=== PATIENT | male | born 1940 | race Caucasian/White ===

== ENCOUNTER 2019-06-23 16:35 | Inpatient (IN) | payer MEDICARE ==
[~2019-06-23] VITALS: Ht 188 cm; Wt 76.6 kg
[2019-06-23] MEDS: pantoprazole 40 MG vial IV SCH (08:00)
[2019-06-23 17:04] LABS: BASOPHILS % (AUTO) 0.7 % (0-1); EOSINOPHILS # (AUTO) 0.1 X10'3 (0-0.9); EOSINOPHILS % (AUTO) 1.4 % (0-6); HEMATOCRIT 23.8 % (42.0-52.0); HEMOGLOBIN 8.2 g/dl (14.0-17.9); LYMPHOCYTES # (AUTO) 0.6 X10'3 (1.1-4.8); LYMPHOCYTES % (AUTO) 8.5 % (21-51); MEAN CORPUSCULAR HGB CONC 34.3 g/dL (33.0-36.5); MEAN PLATELET VOLUME 7.8 FL (7.4-10.4); MONOCYTES # (AUTO) 0.9 X10'3 (0-0.9); MONOCYTES % (AUTO) 14.3 % (2-12); NEUTROPHILS % (AUTO) 75.1 % (42-75); PLATELET COUNT 198 X10'3 (140-440); RED BLOOD COUNT 2.48 X10'6 (4.70-6.10); RED CELL DISTRIBUTION WIDTH 13.9 % (11.5-14.5); WHITE BLOOD COUNT 6.6 X10'3 (4.5-11.0)
[2019-06-23] MEDS: propofol 1000mg/100ml bottle 100 ML IV PRN ×2 (17:08→20:45)
[2019-06-23 17:19] LABS: ALANINE AMINOTRANSFERASE 24 U/L (12-78); ALBUMIN 2.6 G/DL (3.4-5.0); ALBUMIN/GLOBULIN RATIO 0.7 (1.1-1.5); ALKALINE PHOSPHATASE 62 IU/L (46-116); ANION GAP 8 (8-16); ASPARTATE AMINO TRANSFERASE 26 U/L (10-37); BILIRUBIN,TOTAL 0.3 MG/DL (0.1-1.0); BLOOD UREA NITROGEN 42 MG/DL (7-18); BUN/CREATININE RATIO 27.6 (5.4-32.0); CALCIUM 7.9 MG/DL (8.5-10.1); CHLORIDE 108 MMOL/L (99-107); CREATININE 1.52 MG/DL (0.60-1.10); GLUCOSE 94 MG/DL (70-104); SODIUM 141 MMOL/L (135-145); TOTAL CARBON DIOXIDE 24.6 MMOL/L (24-32); TOTAL PROTEIN 6.1 G/DL (6.4-8.2); eGFR 44 ML/MIN
[2019-06-23 17:25] LABS: MAGNESIUM 2.1 MG/DL (1.5-2.4)
[2019-06-23 17:26] LABS: ABG BASE EXCESS -3.1 mmol/L (-2.0-3.0); ABG HCO3 22.1 mmol/L (22.0-26.0); ABG OXYGEN SATURATION 95.7 % (95-98); ABG PCO2 (T) 40.3 mmHg (35.0-45.0); ABG PH (T) 7.357 (7.350-7.450); ALLEN'S TEST Positive; FCOHb 0.3 % (0.5-1.5); FMetHb 0.3 % (0.3-1.12); FO2Hb 95.1 % (94-100); MINUTE VOLUME 9 L/min; PEEP 5 cm H2O; RESPIRATORY RATE 16 b/min; RESPIRATORY RATE (OBSERVED) 16 b/min; TIDAL VOLUME 500 mL; TOTAL HEMOGLOBIN 8.7 G/dl (14.0-17.9)
[2019-06-23] MEDS ORDERED: potassium Cl 20 mEq SR tablet PO PRN ×2 (17:45)
[2019-06-23] MEDS ORDERED: acetaminophen 325mg tablet PO PRN ×2 (17:45)
[2019-06-23] MEDS ORDERED: ondansetron/PF 4mg/2ml inj IV PRN (17:45)
[2019-06-23] MEDS ORDERED: FENTANYL-0.9 % NACL/PF 100 ML IV PRN (17:51)
[2019-06-23] MEDS ORDERED: midazolam 100mg in NS 100ml 100 ML IV PRN (17:51)
[2019-06-23] MEDS ORDERED: albuterol 2.5 MG/3 ML nebule NEB PRN (17:55)
[2019-06-23] MEDS: K, MAG and/or Phos replacement - Verify level? MC SCH (18:00)
--- NOTE | 2019-06-23 18:40 | NUR ---
Received report from Rasheeda FONG. Dr. Cerda in progress with R-IJ quad central line. Pt currently being infused with IV Propofol for sedation. VS WNL. Pt has 7.5 ETT, 24cm @ teeth, OG - 58 cm @ lip to LWS; all other IV lines checked/confirmed/remain intact. +Carrington. Pt remians critically stable at this time. Pending ICU admission.
--- NOTE | 2019-06-23 18:46 | NUR ---
CXR in progress.
--- NOTE | 2019-06-23 18:47 | NUR ---
Updated patients , Gillian, regarding patients current status.
--- NOTE | 2019-06-23 19:13 | NUR ---
"Ok to use central line" per Dr. Cerda after review of CXR post-central line insertion.
--- NOTE | 2019-06-23 19:23 | NUR ---
Attempted to call report to ICU, bedside RN will call back this customs entry writer w/in 15mins for report.
--- NOTE | 2019-06-23 19:36 | NUR ---
I have received report from Ana FONG form ED and had the opportunity to ask questions. Room is set up and ready for PT arrival.
--- NOTE | 2019-06-23 19:45 | NUR ---
Per discussion with receiving ICU nurse Josie, telemedicine neuro consult needs to be completed prior to pt being admitted to ICU per Dr. Bell.
[2019-06-23] MEDS: docusate sod 100mg capsule PO SCH (20:00)
--- NOTE | 2019-06-23 20:09 | NUR ---
Per Dr. Calixto, "ok" to send pt up to ICU pending neuro telemedicine consult. EDCRN Kassidy aware and agrees with plan. CVP monitoring set up, zeroed, initial CVP 17 () with appropriate waveform.
[2019-06-23] MEDS: normal saline 1000ml 1,000 ML IV SCH (20:49)
[2019-06-23 21:00] VITALS: BP 141/71
--- NOTE | 2019-06-23 21:00 | NUR ---
PT arrived via gurney. PT transferred over to bed and placed on bedside monitor. VSS. PT is intubated and mechanically vented, tolerating setting well, O2 sat >94%. PT is sedated with Propofol which is running @ 40mcg/kg/min and has fentanyl/versed ordered as well which will be started, PT is having tremors and biting ET tube. Tele medicine computer was brought up with PT from ED, awaiting for stroke nurse to arrive. Shultz in place and draining to gravity. Bed is locked and low. Bilat soft wrist restraints in place and secure.
[2019-06-23 21:13] LABS: CLARITY,URINE SLIGHTLY CLOUDY (Clear); COLOR,URINE YELLOW (Yellow); GLUCOSE, URINE NEGATIVE (Neg); KETONES,URINE NEGATIVE (Neg); LEUKOCYTE ESTERASE ,URINE NEGATIVE (Neg); NITRITES, URINE NEGATIVE (Neg); OCCULT BLOOD,URINE LARGE (Neg); PH,URINE 5.5 (4.8-8.0); PROTEIN,URINE TRACE mg/dl (Neg); UROBILINOGEN,URINE 0.2 E.U/dL (0.2-1.0)
[2019-06-23 21:19] LABS: UA COLLECTION TYPE FOLEY CATH
[2019-06-23 21:20] LABS: BACTERIA,URINE FEW /HPF (Neg); RBC,URINE 20-50 /HPF (0-2); SQUAMOUS EPITHELIAL CELL,UR FEW /LPF (FEW); WBC,URINE NONE SEEN /HPF (0-4)
[2019-06-23 21:44] LABS: PARTIAL THROMBOPLASTIN TIME 29 SECONDS (22-32)
[2019-06-23 22:00] VITALS: BP 150/96
[2019-06-23 23:00] VITALS: BP 149/74
[2019-06-23] MEDS ORDERED: iohexol 350MG/ML 100ml bottle IV ONE (23:20)
[2019-06-24] VITALS (21 sets, daily range): BP systolic 107–141; BP diastolic 47–74
[2019-06-24] MEDS: piperacillin/tazo 3.375gm/50ml 50 ML IV SCH ×3 (00:40→17:40)
[2019-06-24] MEDS: heparin, porcine 5000 units/ml vial SQ SCH ×3 (00:41→17:40)
--- NOTE | 2019-06-24 02:30 | NUR ---
GIANLUCA Nova called and made aware of PTs blood sugar of 72. Dietary consult order received and will continue to monitor.
--- NOTE | 2019-06-24 03:00 | NUR ---
PT is resting with no s/s of distress noted at this time. VSS. Bed is locked and low. Bilat soft wrist restraints in place and secure. will continue to monitor.
[2019-06-24] MEDS: normal saline 1000ml 1,000 ML IV SCH ×4 (03:05→21:40)
[2019-06-24 03:11] LABS: BASOPHILS % (AUTO) 0.4 % (0-1); EOSINOPHILS # (AUTO) 0.1 X10'3 (0-0.9); EOSINOPHILS % (AUTO) 0.6 % (0-6); HEMATOCRIT 24.6 % (42.0-52.0); HEMOGLOBIN 8.4 g/dl (14.0-17.9); LYMPHOCYTES # (AUTO) 0.3 X10'3 (1.1-4.8); LYMPHOCYTES % (AUTO) 3.9 % (21-51); MEAN CORPUSCULAR HEMOGLOBIN 33.1 PG (27.0-31.0); MEAN CORPUSCULAR VOLUME 97.3 FL (78-98); MEAN PLATELET VOLUME 7.9 FL (7.4-10.4); MONOCYTES % (AUTO) 11.6 % (2-12); NEUTROPHILS # (AUTO) 7.4 X10'3 (1.8-7.7); NEUTROPHILS % (AUTO) 83.5 % (42-75); PLATELET COUNT 198 X10'3 (140-440); RED BLOOD COUNT 2.53 X10'6 (4.70-6.10); RED CELL DISTRIBUTION WIDTH 13.5 % (11.5-14.5); WHITE BLOOD COUNT 8.8 X10'3 (4.5-11.0)
[2019-06-24 03:36] LABS: ABG BASE EXCESS -4.2 mmol/L (-2.0-3.0); ABG HCO3 20.4 mmol/L (22.0-26.0); ABG OXYGEN SATURATION 94.6 % (95-98); ABG PCO2 (T) 35.7 mmHg (35.0-45.0); ABG PH (T) 7.377 (7.350-7.450); ABG PO2 (T) 79.5 mmHg (83-108); ALLEN'S TEST Positive; FCOHb 0.3 % (0.5-1.5); FMetHb 0.3 % (0.3-1.12); MINUTE VOLUME 9 L/min; PATIENT TEMPERATURE 37.3; PEEP 5 cm H2O; RESPIRATORY RATE 16 b/min; RESPIRATORY RATE (OBSERVED) 16 b/min; TIDAL VOLUME 500 mL; TOTAL HEMOGLOBIN 9.1 G/dl (14.0-17.9)
[2019-06-24 04:06] LABS: ALANINE AMINOTRANSFERASE 24 U/L (12-78); ALBUMIN 2.6 G/DL (3.4-5.0); ALBUMIN/GLOBULIN RATIO 0.7 (1.1-1.5); ALKALINE PHOSPHATASE 64 IU/L (46-116); ANION GAP 9 (8-16); ASPARTATE AMINO TRANSFERASE 31 U/L (10-37); BILIRUBIN,TOTAL 0.4 MG/DL (0.1-1.0); BLOOD UREA NITROGEN 36 MG/DL (7-18); BUN/CREATININE RATIO 26.5 (5.4-32.0); CALCIUM 7.9 MG/DL (8.5-10.1); CHLORIDE 108 MMOL/L (99-107); CREATININE 1.36 MG/DL (0.60-1.10); GLUCOSE 75 MG/DL (70-104); POTASSIUM 3.6 MMOL/L (3.5-5.1); SODIUM 140 MMOL/L (135-145); TOTAL CARBON DIOXIDE 23.2 MMOL/L (24-32); TOTAL PROTEIN 6.1 G/DL (6.4-8.2); eGFR 51 ML/MIN
[2019-06-24 04:09] LABS: PHOSPHORUS 2.6 MG/DL (2.3-4.5)
[2019-06-24] MEDS: propofol 1000mg/100ml bottle 100 ML IV PRN (05:06)
--- NOTE | 2019-06-24 06:30 | NUR ---
Patient in room ICU 2042. I have received report from JAYMIE and had the opportunity to ask questions and assume patient care.
--- NOTE | 2019-06-24 07:09 | NUR ---
Problems reprioritized. Patient report given, questions answered & plan of care reviewed with Melina FONG.
[2019-06-24] MEDS: K, MAG and/or Phos replacement - Verify level? MC SCH (08:00)
[2019-06-24] MEDS: docusate sod 100mg capsule PO SCH ×2 (08:00→21:40)
--- NOTE | 2019-06-24 08:45 | NUR ---
pt nonresponsive to commands. barely able to open eyelids to check pupils- resistive and to oral care. fentanyl, versed and diprivan off to asses pt.
[2019-06-24] MEDS: azithromycin/NS 500mg/250ml 250 ML IV SCH (09:15)
[2019-06-24] MEDS: pantoprazole 40 MG vial IV SCH (09:15)
--- NOTE | 2019-06-24 09:54 | NUR ---
TF consult: Pt with AMS which developed after a fall and admit with pericardial effusion and respiratory failure. Pt was intubated prior to transfer to [facility]. TF recommendations below calculated to meet 100% of patient's estimated nutrient needs while intubated. Per H&P pt with hx Parkinson's; pt may benefit from adaptive-jim once extubated and PO diet has been advanced. No documented LBM, pt with routine Colace and Relistor. Will continue to follow closely. Recommendations: 1) Continuous TF via OG tube using Vital AF with goal rate of 90 mL/hr to provide: 2160 mL total volume/day, 2592 kcal, 162 g protein, and 1752 mL water 2) Additional 140 mL water flush Q4H 3) Prealbumin q / 4) Daily weights 5) Diet advancement to heart healthy as medically indicated once extubated 6) Monitor need for adaptive-jim with PO diet advancement given hx Parkinson's 7) Routine bowel care Addendum: 06/24/19 at [address] Amended: Links added.
--- NOTE | 2019-06-24 11:00 | NUR ---
with care pt becomes rigid with slight tremor on right hand. and mother in law in in to visit. able to do admission assessment, meds list. updated frequently.
[2019-06-24] MEDS ORDERED: FLO0.4C PO (12:31)
[2019-06-24] MEDS ORDERED: LEVO88TA7 PO (12:31)
[2019-06-24] MEDS ORDERED: FLUD0.1T PO (12:31)
[2019-06-24] MEDS ORDERED: CITA40TA17 PO (12:31)
[2019-06-24] MEDS ORDERED: SIMV-42 PO (12:32)
--- NOTE | 2019-06-24 15:30 | NUR ---
contacted to complete mri screening form. diprivan started with bolus for mri. with care, trmors increased on rt side. pt rigid from head to feet. leg bent at knew by pt- would only relax with diprivan bolus.
--- NOTE | 2019-06-24 16:30 | NUR ---
pt back from mri- 2 5cc boluses needed for test to relax pt. update to . echo complete. eeg for tomorrow. vss, uo adequate. update to dr michel today
--- NOTE | 2019-06-24 18:30 | NUR ---
Patient in room ICU 2042. I have received report from Melina FONG and had the opportunity to ask questions and assume patient care.
[2019-06-24] MEDS: mineral oil/petrolatum ophthal oint EACHEYE SCH (21:40)
[2019-06-25] VITALS (24 sets, daily range): BP systolic 105–142; BP diastolic 16–68
[2019-06-25] MEDS: piperacillin/tazo 3.375gm/50ml 50 ML IV SCH ×4 (00:36→23:57)
[2019-06-25] MEDS: heparin, porcine 5000 units/ml vial SQ SCH ×4 (00:36→23:58)
[2019-06-25] MEDS: propofol 1000mg/100ml bottle 100 ML IV PRN (00:36)
[2019-06-25] MEDS: mineral oil/petrolatum ophthal oint EACHEYE SCH ×4 (02:57→20:38)
[2019-06-25] MEDS: normal saline 1000ml 1,000 ML IV SCH ×2 (04:00→10:38)
[2019-06-25 04:15] LABS: BASOPHILS % (AUTO) 0.5 % (0-1); EOSINOPHILS # (AUTO) 0.1 X10'3 (0-0.9); EOSINOPHILS % (AUTO) 0.6 % (0-6); HEMATOCRIT 24.5 % (42.0-52.0); HEMOGLOBIN 8.3 g/dl (14.0-17.9); LYMPHOCYTES # (AUTO) 0.5 X10'3 (1.1-4.8); LYMPHOCYTES % (AUTO) 5.4 % (21-51); MEAN CORPUSCULAR HEMOGLOBIN 32.9 PG (27.0-31.0); MEAN CORPUSCULAR HGB CONC 33.9 g/dL (33.0-36.5); MEAN CORPUSCULAR VOLUME 97.1 FL (78-98); MEAN PLATELET VOLUME 8.3 FL (7.4-10.4); MONOCYTES # (AUTO) 0.9 X10'3 (0-0.9); NEUTROPHILS % (AUTO) 82.5 % (42-75); PLATELET COUNT 191 X10'3 (140-440); RED BLOOD COUNT 2.52 X10'6 (4.70-6.10); RED CELL DISTRIBUTION WIDTH 13.7 % (11.5-14.5); WHITE BLOOD COUNT 8.5 X10'3 (4.5-11.0)
[2019-06-25 04:33] LABS: ALANINE AMINOTRANSFERASE 23 U/L (12-78); ALBUMIN 2.2 G/DL (3.4-5.0); ALBUMIN/GLOBULIN RATIO 0.6 (1.1-1.5); ALKALINE PHOSPHATASE 64 IU/L (46-116); ANION GAP 6 (8-16); ASPARTATE AMINO TRANSFERASE 25 U/L (10-37); BILIRUBIN,TOTAL 0.4 MG/DL (0.1-1.0); BLOOD UREA NITROGEN 27 MG/DL (7-18); CALCIUM 7.9 MG/DL (8.5-10.1); CHLORIDE 110 MMOL/L (99-107); CREATININE 1.35 MG/DL (0.60-1.10); GLUCOSE 108 MG/DL (70-104); PHOSPHORUS 3.1 MG/DL (2.3-4.5); POTASSIUM 3.4 MMOL/L (3.5-5.1); SODIUM 142 MMOL/L (135-145); TOTAL PROTEIN 5.7 G/DL (6.4-8.2); eGFR 51 ML/MIN
[2019-06-25 04:40] LABS: ABG BASE EXCESS -2.7 mmol/L (-2.0-3.0); ABG OXYGEN SATURATION 96.7 % (95-98); ABG PCO2 (T) 36.7 mmHg (35.0-45.0); ABG PH (T) 7.393 (7.350-7.450); ABG PO2 (T) 89.9 mmHg (83-108); ALLEN'S TEST Positive; FCOHb 0.3 % (0.5-1.5); FMetHb 0.3 % (0.3-1.12); FO2Hb 96.1 % (94-100); MINUTE VOLUME 9 L/min; PATIENT TEMPERATURE 36.7; PEEP 5 cm H2O; RESPIRATORY RATE 16 b/min; RESPIRATORY RATE (OBSERVED) 16 b/min; TIDAL VOLUME 500 mL
--- NOTE | 2019-06-25 06:42 | NUR ---
Problems reprioritized. Patient report given, questions answered & plan of care reviewed with Art RN.
[2019-06-25] MEDS ORDERED: levoTHYROXINE 88mcg tablet PO SCH (07:30)
[2019-06-25] MEDS ORDERED: POTASSIUM BICARB 20meq eff tab 20 MEQ TABLET.EFF PO PRN (07:50)
[2019-06-25] MEDS ORDERED: fludrocortisone acetate 0.1mg tablet PO SCH (08:00)
[2019-06-25] MEDS ORDERED: citalopram 20mg tablet PO SCH (08:00)
[2019-06-25] MEDS: pantoprazole 40 MG vial IV SCH (08:38)
[2019-06-25] MEDS: POTASSIUM BICARB 20meq eff tab 20 MEQ TABLET.EFF PO PRN ×2 (08:38→12:07)
[2019-06-25] MEDS: docusate sod 100mg capsule PO SCH (08:38)
[2019-06-25] MEDS: azithromycin/NS 500mg/250ml 250 ML IV SCH (08:38)
[2019-06-25] MEDS: tamsulosin 0.4mg capsule PO SCH (08:39)
[2019-06-25] MEDS: K, MAG and/or Phos replacement - Verify level? MC SCH (08:40)
--- NOTE | 2019-06-25 10:51 | NUR ---
Sedation turned off for respiratory testing
--- NOTE | 2019-06-25 12:17 | NUR ---
pt exhibiting tremors to right hand, sedation turned back on.
--- NOTE | 2019-06-25 12:29 | NUR ---
Marquis trigger: Marquis Jim; skin intact Addendum: 06/25/19 at [address] Amended: Links added.
[2019-06-25] MEDS ORDERED: lactulose 20gm/30ml cup PO PRN (17:45)
--- NOTE | 2019-06-25 18:30 | NUR ---
Patient in room ICU 2042. I have received report from Art RN and had the opportunity to ask questions and assume patient care.
[2019-06-25] MEDS ORDERED: docusate sodium 100mg/10ml UD cup PO SCH (19:13)
[2019-06-25] MEDS: docusate sodium 100mg/10ml UD cup OGT SCH (20:38)
[2019-06-25] MEDS: atorvastatin 20mg tablet OGT SCH (20:38)
[2019-06-26] VITALS (24 sets, daily range): BP systolic 110–140; BP diastolic 48–79
[2019-06-26 02:47] LABS: BASOPHILS % (AUTO) 0.3 % (0-1); EOSINOPHILS # (AUTO) 0.1 X10'3 (0-0.9); EOSINOPHILS % (AUTO) 1.1 % (0-6); HEMATOCRIT 23.4 % (42.0-52.0); LYMPHOCYTES # (AUTO) 0.5 X10'3 (1.1-4.8); LYMPHOCYTES % (AUTO) 6.4 % (21-51); MEAN CORPUSCULAR HEMOGLOBIN 32.9 PG (27.0-31.0); MEAN CORPUSCULAR HGB CONC 34.2 g/dL (33.0-36.5); MEAN CORPUSCULAR VOLUME 96.4 FL (78-98); MEAN PLATELET VOLUME 7.8 FL (7.4-10.4); MONOCYTES # (AUTO) 0.9 X10'3 (0-0.9); MONOCYTES % (AUTO) 11.5 % (2-12); NEUTROPHILS # (AUTO) 6.5 X10'3 (1.8-7.7); NEUTROPHILS % (AUTO) 80.7 % (42-75); PLATELET COUNT 173 X10'3 (140-440); RED BLOOD COUNT 2.43 X10'6 (4.70-6.10); RED CELL DISTRIBUTION WIDTH 14.1 % (11.5-14.5)
[2019-06-26 03:00] LABS: ALANINE AMINOTRANSFERASE 19 U/L (12-78); ALBUMIN 1.8 G/DL (3.4-5.0); ALBUMIN/GLOBULIN RATIO 0.5 (1.1-1.5); ALKALINE PHOSPHATASE 64 IU/L (46-116); ANION GAP 5 (8-16); ASPARTATE AMINO TRANSFERASE 21 U/L (10-37); BILIRUBIN,TOTAL 0.4 MG/DL (0.1-1.0); BLOOD UREA NITROGEN 23 MG/DL (7-18); BUN/CREATININE RATIO 18.3 (5.4-32.0); CALCIUM 7.4 MG/DL (8.5-10.1); CHLORIDE 111 MMOL/L (99-107); CREATININE 1.26 MG/DL (0.60-1.10); GLUCOSE 115 MG/DL (70-104); MAGNESIUM 1.9 MG/DL (1.5-2.4); PHOSPHORUS 2.1 MG/DL (2.3-4.5); POTASSIUM 3.5 MMOL/L (3.5-5.1); PREALBUMIN 7.4 MG/DL (19-36); SODIUM 143 MMOL/L (135-145); TOTAL PROTEIN 5.3 G/DL (6.4-8.2); eGFR 55 ML/MIN
[2019-06-26] MEDS: mineral oil/petrolatum ophthal oint EACHEYE SCH ×4 (03:12→20:00)
[2019-06-26 04:56] LABS: ABG BASE EXCESS 0.9 mmol/L (-2.0-3.0); ABG HCO3 25.7 mmol/L (22.0-26.0); ABG OXYGEN SATURATION 94.1 % (95-98); ABG PCO2 (T) 42.3 mmHg (35.0-45.0); ABG PH (T) 7.403 (7.350-7.450); ABG PO2 (T) 73.4 mmHg (83-108); ALLEN'S TEST Positive; FCOHb 0.3 % (0.5-1.5); FMetHb 0.2 % (0.3-1.12); FO2Hb 93.6 % (94-100); MINUTE VOLUME 8 L/min; PATIENT TEMPERATURE 37.3; PEEP 5 cm H2O; RESPIRATORY RATE (OBSERVED) 19 b/min; TOTAL HEMOGLOBIN 8.8 G/dl (14.0-17.9)
[2019-06-26] MEDS: normal saline 1000ml 1,000 ML IV SCH (05:18)
--- NOTE | 2019-06-26 06:18 | NUR ---
Problems reprioritized. Patient report given, questions answered & plan of care reviewed with Art RN.
[2019-06-26] MEDS: heparin, porcine 5000 units/ml vial SQ SCH ×2 (08:00→16:29)
[2019-06-26] MEDS: K, MAG and/or Phos replacement - Verify level? MC SCH (08:00)
[2019-06-26] MEDS: docusate sodium 100mg/10ml UD cup OGT SCH ×2 (08:00→20:26)
[2019-06-26] MEDS: pantoprazole 40 MG vial IV SCH (08:01)
[2019-06-26] MEDS: azithromycin/NS 500mg/250ml 250 ML IV SCH (08:01)
[2019-06-26] MEDS: citalopram 20mg tablet OGT SCH (08:02)
[2019-06-26] MEDS: tamsulosin 0.4mg capsule PO SCH (08:02)
[2019-06-26] MEDS: levoTHYROXINE 88mcg tablet OGT SCH (08:02)
[2019-06-26] MEDS: fludrocortisone acetate 0.1mg tablet OGT SCH (08:02)
[2019-06-26] MEDS: piperacillin/tazo 3.375gm/50ml 50 ML IV SCH ×2 (08:03→14:16)
--- NOTE | 2019-06-26 14:03 | NUR ---
PRESSURE ULCER EDUCATION: DEFINITION: A pressure ulcer is an area of skin that breaks down when you stay in one position too long. The constant pressure against the skin reduces the blood flow to that area and the affected tissue dies. CAUSES: "Being bedridden or in a wheelchair "Fragile skin "Having a chronic condition, such as diabetes or vascular disease "Inability to move certain parts of your body without assistance "Older age "Incontinence of urine or stool SYMPTOMS: "A reddened area that DOES NOT turn white when pressed on - this can be the beginning of a pressure ulcer "A blister, deep sore or a crater - these can be advanced pressure ulcers FIRST AID: "Relieve the pressure on this area "Keep the area clean and dry "Call your primary doctor if you see any of the above symptoms "DO NOT massage the area "DO NOT use a donut shaped or ring shaped pillow- these actually interfere with the blood flow and cause complications PREVENTION: "Check for pressure ulcers everyday "Change position at least every two hours to relieve pressure "Use items that help relieve pressure- pillows, sheepskin, foam padding, and powders. "Keep skin clean and dry "Eat healthy well balanced meals "Exercise daily IF YOU SEE ANY OF THESE SYMPTOMS WHILE IN THE HOSPITAL - TELL YOUR NURSE IMMEDIATELY. IF YOU SEE ANY OF THESE SYMPTOMS WHILE AT HOME OR HAVE ANY QUESTIONS OR CONCERNS ABOUT PRESSURE ULCERS - CALL YOUR PRIMARY DOCTOR IMMEDIATELY. Addendum: 06/26/19 at 1403 by Krys Hope RN Amended: Links added.
--- NOTE | 2019-06-26 16:21 | NUR ---
Pt took home pt's wedding ring and upper partial plate
[2019-06-26] MEDS: atorvastatin 20mg tablet OGT SCH (20:27)
[2019-06-27] VITALS (24 sets, daily range): BP systolic 126–157; BP diastolic 44–76
[2019-06-27] MEDS: piperacillin/tazo 3.375gm/50ml 50 ML IV SCH ×3 (00:55→16:46)
[2019-06-27] MEDS: heparin, porcine 5000 units/ml vial SQ SCH ×3 (00:55→16:47)
[2019-06-27] MEDS: mineral oil/petrolatum ophthal oint EACHEYE SCH ×4 (02:00→20:50)
[2019-06-27 03:21] LABS: ABG BASE EXCESS 0.9 mmol/L (-2.0-3.0); ABG HCO3 25.3 mmol/L (22.0-26.0); ABG OXYGEN SATURATION 94.9 % (95-98); ABG PCO2 (T) 39.2 mmHg (35.0-45.0); ABG PH (T) 7.427 (7.350-7.450); ABG PO2 (T) 73.5 mmHg (83-108); ALLEN'S TEST Positive; FMetHb 0.3 % (0.3-1.12); FO2Hb 94.6 % (94-100); MINUTE VOLUME 12 L/min; PEEP 5 cm H2O; RESPIRATORY RATE (OBSERVED) 25 b/min; TOTAL HEMOGLOBIN 9.4 G/dl (14.0-17.9)
[2019-06-27 04:03] LABS: BASOPHILS # (AUTO) 0.1 X10'3 (0-0.2); BASOPHILS % (AUTO) 1.1 % (0-1); EOSINOPHILS # (AUTO) 0.2 X10'3 (0-0.9); EOSINOPHILS % (AUTO) 1.9 % (0-6); HEMATOCRIT 24.9 % (42.0-52.0); HEMOGLOBIN 8.6 g/dl (14.0-17.9); LYMPHOCYTES # (AUTO) 0.5 X10'3 (1.1-4.8); LYMPHOCYTES % (AUTO) 5.7 % (21-51); MEAN CORPUSCULAR HEMOGLOBIN 32.9 PG (27.0-31.0); MEAN CORPUSCULAR HGB CONC 34.5 g/dL (33.0-36.5); MEAN CORPUSCULAR VOLUME 95.4 FL (78-98); MEAN PLATELET VOLUME 7.9 FL (7.4-10.4); MONOCYTES % (AUTO) 10.7 % (2-12); NEUTROPHILS # (AUTO) 7.5 X10'3 (1.8-7.7); NEUTROPHILS % (AUTO) 80.6 % (42-75); PLATELET COUNT 194 X10'3 (140-440); RED BLOOD COUNT 2.61 X10'6 (4.70-6.10); RED CELL DISTRIBUTION WIDTH 13.8 % (11.5-14.5); WHITE BLOOD COUNT 9.3 X10'3 (4.5-11.0)
[2019-06-27 04:21] LABS: ALANINE AMINOTRANSFERASE 21 U/L (12-78); ALBUMIN/GLOBULIN RATIO 0.5 (1.1-1.5); ALKALINE PHOSPHATASE 73 IU/L (46-116); ANION GAP 4 (8-16); ASPARTATE AMINO TRANSFERASE 24 U/L (10-37); BILIRUBIN,TOTAL 0.4 MG/DL (0.1-1.0); BLOOD UREA NITROGEN 22 MG/DL (7-18); BUN/CREATININE RATIO 18.5 (5.4-32.0); CALCIUM 7.6 MG/DL (8.5-10.1); CHLORIDE 109 MMOL/L (99-107); CREATININE 1.19 MG/DL (0.60-1.10); GLUCOSE 104 MG/DL (70-104); PHOSPHORUS 2.5 MG/DL (2.3-4.5); POTASSIUM 3.5 MMOL/L (3.5-5.1); SODIUM 143 MMOL/L (135-145); TOTAL CARBON DIOXIDE 29.9 MMOL/L (24-32); TOTAL PROTEIN 5.7 G/DL (6.4-8.2); eGFR 59 ML/MIN
[2019-06-27] MEDS: normal saline 1000ml 1,000 ML IV SCH (04:58)
[2019-06-27] MEDS: propofol 1000mg/100ml bottle 100 ML IV PRN (04:58)
[2019-06-27] MEDS: levoTHYROXINE 88mcg tablet OGT SCH (07:30)
[2019-06-27] MEDS: tamsulosin 0.4mg capsule PO SCH (08:00)
[2019-06-27] MEDS: K, MAG and/or Phos replacement - Verify level? MC SCH (08:00)
[2019-06-27] MEDS: docusate sodium 100mg/10ml UD cup OGT SCH ×2 (09:08→20:00)
[2019-06-27] MEDS: fludrocortisone acetate 0.1mg tablet OGT SCH (09:08)
[2019-06-27] MEDS: azithromycin/NS 500mg/250ml 250 ML IV SCH (09:08)
[2019-06-27] MEDS: citalopram 20mg tablet OGT SCH (09:09)
[2019-06-27] MEDS: pantoprazole 40 MG vial IV SCH (09:09)
[2019-06-27] MEDS ORDERED: acetaminophen 325mg/10.15ml oral unit dose solution OGT PRN ×2 (09:57)
[2019-06-27] MEDS: lactobacillus rhamnosus 10,000 MMU CELLS/CAPSULE PO SCH (20:50)
[2019-06-27] MEDS: atorvastatin 20mg tablet OGT SCH (20:50)
[2019-06-28] VITALS (24 sets, daily range): BP systolic 121–150; BP diastolic 56–79
[2019-06-28] MEDS: piperacillin/tazo 3.375gm/50ml 50 ML IV SCH ×3 (00:53→15:37)
[2019-06-28] MEDS: heparin, porcine 5000 units/ml vial SQ SCH ×3 (00:53→15:37)
[2019-06-28] MEDS: normal saline 1000ml 1,000 ML IV SCH ×2 (00:54→15:37)
[2019-06-28] MEDS: mineral oil/petrolatum ophthal oint EACHEYE SCH ×4 (02:00→20:41)
[2019-06-28 03:20] LABS: BASOPHILS % (AUTO) 0.5 % (0-1); EOSINOPHILS # (AUTO) 0.2 X10'3 (0-0.9); EOSINOPHILS % (AUTO) 1.9 % (0-6); HEMATOCRIT 25.1 % (42.0-52.0); HEMOGLOBIN 8.5 g/dl (14.0-17.9); LYMPHOCYTES # (AUTO) 0.5 X10'3 (1.1-4.8); LYMPHOCYTES % (AUTO) 5.9 % (21-51); MEAN CORPUSCULAR HEMOGLOBIN 32.5 PG (27.0-31.0); MEAN CORPUSCULAR HGB CONC 33.8 g/dL (33.0-36.5); MEAN CORPUSCULAR VOLUME 96.2 FL (78-98); MEAN PLATELET VOLUME 7.9 FL (7.4-10.4); MONOCYTES % (AUTO) 11.9 % (2-12); NEUTROPHILS # (AUTO) 6.8 X10'3 (1.8-7.7); NEUTROPHILS % (AUTO) 79.8 % (42-75); PLATELET COUNT 174 X10'3 (140-440); RED BLOOD COUNT 2.61 X10'6 (4.70-6.10); RED CELL DISTRIBUTION WIDTH 13.6 % (11.5-14.5); WHITE BLOOD COUNT 8.5 X10'3 (4.5-11.0)
[2019-06-28 03:34] LABS: ALANINE AMINOTRANSFERASE 25 U/L (12-78); ALBUMIN 1.8 G/DL (3.4-5.0); ALBUMIN/GLOBULIN RATIO 0.5 (1.1-1.5); ALKALINE PHOSPHATASE 69 IU/L (46-116); ANION GAP 5 (8-16); ASPARTATE AMINO TRANSFERASE 28 U/L (10-37); BILIRUBIN,TOTAL 0.3 MG/DL (0.1-1.0); BLOOD UREA NITROGEN 23 MG/DL (7-18); BUN/CREATININE RATIO 21.1 (5.4-32.0); CALCIUM 7.5 MG/DL (8.5-10.1); CHLORIDE 108 MMOL/L (99-107); CREATININE 1.09 MG/DL (0.60-1.10); GLUCOSE 118 MG/DL (70-104); MAGNESIUM 1.9 MG/DL (1.5-2.4); PHOSPHORUS 2.2 MG/DL (2.3-4.5); POTASSIUM 3.7 MMOL/L (3.5-5.1); SODIUM 142 MMOL/L (135-145); TOTAL CARBON DIOXIDE 28.9 MMOL/L (24-32); TOTAL PROTEIN 5.6 G/DL (6.4-8.2); eGFR 65 ML/MIN
[2019-06-28 05:01] LABS: ABG BASE EXCESS 3.5 mmol/L (-2.0-3.0); ABG HCO3 27.9 mmol/L (22.0-26.0); ABG OXYGEN SATURATION 95.1 % (95-98); ABG PCO2 (T) 40.9 mmHg (35.0-45.0); ABG PO2 (T) 73.6 mmHg (83-108); ALLEN'S TEST Positive; FCOHb 0.3 % (0.5-1.5); FO2Hb 94.8 % (94-100); MINUTE VOLUME 10 L/min; PATIENT TEMPERATURE 36.6; PEEP 5 cm H2O; RESPIRATORY RATE (OBSERVED) 22 b/min; TOTAL HEMOGLOBIN 9.2 G/dl (14.0-17.9)
--- NOTE | 2019-06-28 06:10 | NUR ---
RN Note -pt tolerated spontaneous mode on vent throughout night
[2019-06-28] MEDS: azithromycin/NS 500mg/250ml 250 ML IV SCH (07:15)
[2019-06-28] MEDS: citalopram 20mg tablet OGT SCH (07:15)
[2019-06-28] MEDS: tamsulosin 0.4mg capsule PO SCH ×2 (07:16→07:18)
[2019-06-28] MEDS: fludrocortisone acetate 0.1mg tablet OGT SCH (07:16)
[2019-06-28] MEDS: levoTHYROXINE 88mcg tablet OGT SCH (07:16)
[2019-06-28] MEDS: pantoprazole 40 MG vial IV SCH (07:18)
[2019-06-28] MEDS: lactobacillus rhamnosus 10,000 MMU CELLS/CAPSULE PO SCH ×2 (07:19→20:41)
[2019-06-28] MEDS: K, MAG and/or Phos replacement - Verify level? MC SCH (07:19)
[2019-06-28] MEDS: docusate sodium 100mg/10ml UD cup OGT SCH ×2 (07:19→20:00)
[2019-06-28] MEDS: methylnaltrexone br 12mg/0.6ml inj***SubQ only SQ SCH (07:20)
--- NOTE | 2019-06-28 10:50 | NUR ---
Obtained consent from via telephone for the outside facility to send patient's medical records here ([facility]). Faxed medical record request to [facility] in [place], [place].
--- NOTE | 2019-06-28 15:05 | NUR ---
Reassessment: Patient is tolerating tube feedings at goal rate with vital AF at 90 ml/hr and GRV are WNL. Still intubated, no longer receiving sedation. Pt with AMS which developed after a fall and admit with pericardial effusion and respiratory failure. Pt was intubated prior to transfer to [facility]. LB 06/28, pt with routine Colace and Relistor. Will continue to follow closely. Recommendations: 1) Continuous TF via OG tube using Vital AF with goal rate of 90 mL/hr to provide: 2160 mL total volume/day, 2592 kcal, 162 g protein, and 1752 mL water 2) Additional 140 mL water flush Q4H 3) Prealbumin q / 4) Daily weights 5) Diet advancement to heart healthy as medically indicated once extubated 6) Monitor need for adaptive-jim with PO diet advancement given hx Parkinson's 7) Routine bowel care Addendum: 06/28/19 at [address] Amended: Links added.
[2019-06-28] MEDS: atorvastatin 20mg tablet OGT SCH (20:41)
[2019-06-29] VITALS (24 sets, daily range): BP systolic 113–154; BP diastolic 52–83
[2019-06-29] MEDS: heparin, porcine 5000 units/ml vial SQ SCH ×3 (00:40→20:10)
[2019-06-29] MEDS: piperacillin/tazo 3.375gm/50ml 50 ML IV SCH ×4 (00:40→23:32)
[2019-06-29] MEDS: mineral oil/petrolatum ophthal oint EACHEYE SCH ×4 (02:00→20:09)
[2019-06-29 03:46] LABS: ABG BASE EXCESS 5.1 mmol/L (-2.0-3.0); ABG HCO3 29.3 mmol/L (22.0-26.0); ABG OXYGEN SATURATION 96.3 % (95-98); ABG PH (T) 7.462 (7.350-7.450); ABG PO2 (T) 85.2 mmHg (83-108); ALLEN'S TEST Positive; FCOHb 0.2 % (0.5-1.5); FMetHb 0.3 % (0.3-1.12); FO2Hb 95.8 % (94-100); MINUTE VOLUME 8 L/min; PEEP 5 cm H2O; RESPIRATORY RATE (OBSERVED) 16 b/min; TOTAL HEMOGLOBIN 9.4 G/dl (14.0-17.9)
[2019-06-29 04:40] LABS: BASOPHILS # (AUTO) 0.1 X10'3 (0-0.2); BASOPHILS % (AUTO) 0.7 % (0-1); EOSINOPHILS # (AUTO) 0.2 X10'3 (0-0.9); EOSINOPHILS % (AUTO) 1.7 % (0-6); HEMATOCRIT 25.8 % (42.0-52.0); HEMOGLOBIN 8.7 g/dl (14.0-17.9); LYMPHOCYTES # (AUTO) 0.6 X10'3 (1.1-4.8); MEAN CORPUSCULAR HEMOGLOBIN 32.4 PG (27.0-31.0); MEAN CORPUSCULAR HGB CONC 33.8 g/dL (33.0-36.5); MEAN CORPUSCULAR VOLUME 95.9 FL (78-98); MEAN PLATELET VOLUME 7.7 FL (7.4-10.4); MONOCYTES # (AUTO) 1.1 X10'3 (0-0.9); MONOCYTES % (AUTO) 12.5 % (2-12); NEUTROPHILS % (AUTO) 78.1 % (42-75); PLATELET COUNT 179 X10'3 (140-440); WHITE BLOOD COUNT 8.9 X10'3 (4.5-11.0)
[2019-06-29 05:00] LABS: ALANINE AMINOTRANSFERASE 27 U/L (12-78); ALBUMIN 1.8 G/DL (3.4-5.0); ALBUMIN/GLOBULIN RATIO 0.5 (1.1-1.5); ALKALINE PHOSPHATASE 70 IU/L (46-116); ANION GAP 2 (8-16); ASPARTATE AMINO TRANSFERASE 29 U/L (10-37); BILIRUBIN,TOTAL 0.4 MG/DL (0.1-1.0); BLOOD UREA NITROGEN 25 MG/DL (7-18); BUN/CREATININE RATIO 22.3 (5.4-32.0); CALCIUM 7.8 MG/DL (8.5-10.1); CHLORIDE 107 MMOL/L (99-107); CREATININE 1.12 MG/DL (0.60-1.10); GLUCOSE 106 MG/DL (70-104); PHOSPHORUS 2.6 MG/DL (2.3-4.5); POTASSIUM 3.9 MMOL/L (3.5-5.1); PREALBUMIN 9.8 MG/DL (19-36); SODIUM 141 MMOL/L (135-145); TOTAL CARBON DIOXIDE 31.6 MMOL/L (24-32); TOTAL PROTEIN 5.7 G/DL (6.4-8.2); eGFR 63 ML/MIN
[2019-06-29] MEDS: K, MAG and/or Phos replacement - Verify level? MC SCH (08:00)
[2019-06-29] MEDS: tamsulosin 0.4mg capsule PO SCH (08:00)
[2019-06-29] MEDS: docusate sodium 100mg/10ml UD cup OGT SCH ×2 (09:27→20:09)
[2019-06-29] MEDS: pantoprazole 40 MG vial IV SCH (09:27)
[2019-06-29] MEDS: citalopram 20mg tablet OGT SCH (09:27)
[2019-06-29] MEDS: levoTHYROXINE 88mcg tablet OGT SCH (09:27)
[2019-06-29] MEDS: fludrocortisone acetate 0.1mg tablet OGT SCH (09:28)
[2019-06-29] MEDS: lactobacillus rhamnosus 10,000 MMU CELLS/CAPSULE PO SCH ×2 (09:28→20:10)
[2019-06-29] MEDS: azithromycin/NS 500mg/250ml 250 ML IV SCH (09:29)
[2019-06-29] MEDS ORDERED: POTASSIUM BICARB 20meq eff tab 20 MEQ TABLET.EFF OGT PRN (09:45)
--- NOTE | 2019-06-29 18:39 | NUR ---
Patient in room ICU 2042. I have received report from Shad FONG and had the opportunity to ask questions and assume patient care.
[2019-06-29] MEDS: atorvastatin 20mg tablet OGT SCH (20:10)
[2019-06-30] VITALS (24 sets, daily range): BP systolic 112–144; BP diastolic 41–77
[2019-06-30] MEDS: mineral oil/petrolatum ophthal oint EACHEYE SCH ×3 (02:00→14:00)
[2019-06-30 02:51] LABS: BASOPHILS # (AUTO) 0.1 X10'3 (0-0.2); BASOPHILS % (AUTO) 0.6 % (0-1); EOSINOPHILS # (AUTO) 0.2 X10'3 (0-0.9); EOSINOPHILS % (AUTO) 1.7 % (0-6); HEMATOCRIT 25.2 % (42.0-52.0); HEMOGLOBIN 8.6 g/dl (14.0-17.9); LYMPHOCYTES # (AUTO) 0.5 X10'3 (1.1-4.8); MEAN CORPUSCULAR HEMOGLOBIN 32.3 PG (27.0-31.0); MEAN CORPUSCULAR VOLUME 94.9 FL (78-98); MEAN PLATELET VOLUME 7.7 FL (7.4-10.4); MONOCYTES # (AUTO) 1.3 X10'3 (0-0.9); MONOCYTES % (AUTO) 14.1 % (2-12); NEUTROPHILS # (AUTO) 7.1 X10'3 (1.8-7.7); NEUTROPHILS % (AUTO) 77.6 % (42-75); PLATELET COUNT 190 X10'3 (140-440); RED BLOOD COUNT 2.66 X10'6 (4.70-6.10); RED CELL DISTRIBUTION WIDTH 14.1 % (11.5-14.5); WHITE BLOOD COUNT 9.1 X10'3 (4.5-11.0)
[2019-06-30 03:08] LABS: ALANINE AMINOTRANSFERASE 30 U/L (12-78); ALBUMIN 1.8 G/DL (3.4-5.0); ALBUMIN/GLOBULIN RATIO 0.4 (1.1-1.5); ALKALINE PHOSPHATASE 77 IU/L (46-116); ANION GAP 3 (8-16); ASPARTATE AMINO TRANSFERASE 30 U/L (10-37); BILIRUBIN,TOTAL 0.3 MG/DL (0.1-1.0); BLOOD UREA NITROGEN 26 MG/DL (7-18); BUN/CREATININE RATIO 21.5 (5.4-32.0); CALCIUM 7.7 MG/DL (8.5-10.1); CHLORIDE 104 MMOL/L (99-107); CREATININE 1.21 MG/DL (0.60-1.10); GLUCOSE 108 MG/DL (70-104); PHOSPHORUS 2.5 MG/DL (2.3-4.5); POTASSIUM 3.8 MMOL/L (3.5-5.1); SODIUM 139 MMOL/L (135-145); TOTAL CARBON DIOXIDE 31.7 MMOL/L (24-32); TOTAL PROTEIN 5.9 G/DL (6.4-8.2); eGFR 58 ML/MIN
[2019-06-30 03:46] LABS: ABG BASE EXCESS 6.6 mmol/L (-2.0-3.0); ABG HCO3 31.3 mmol/L (22.0-26.0); ABG OXYGEN SATURATION 95.5 % (95-98); ABG PCO2 (T) 45.8 mmHg (35.0-45.0); ABG PH (T) 7.452 (7.350-7.450); ABG PO2 (T) 75.6 mmHg (83-108); ALLEN'S TEST Positive; FCOHb 0.3 % (0.5-1.5); FMetHb 0.3 % (0.3-1.12); FO2Hb 94.9 % (94-100); MINUTE VOLUME 8 L/min; PATIENT TEMPERATURE 36.8; PEEP 5 cm H2O; RESPIRATORY RATE 0 b/min; RESPIRATORY RATE (OBSERVED) 18 b/min; TIDAL VOLUME 472 mL; TOTAL HEMOGLOBIN 9.1 G/dl (14.0-17.9)
--- NOTE | 2019-06-30 06:30 | NUR ---
Problems reprioritized. Patient report given, questions answered & plan of care reviewed with day shift.
[2019-06-30] MEDS: tamsulosin 0.4mg capsule PO SCH (06:39)
[2019-06-30] MEDS: levoTHYROXINE 88mcg tablet OGT SCH (07:08)
[2019-06-30] MEDS: azithromycin/NS 500mg/250ml 250 ML IV SCH (07:15)
[2019-06-30] MEDS: heparin, porcine 5000 units/ml vial SQ SCH ×2 (07:15→20:08)
[2019-06-30] MEDS: pantoprazole 40 MG vial IV SCH (07:15)
[2019-06-30] MEDS: docusate sodium 100mg/10ml UD cup OGT SCH ×2 (07:40→19:00)
[2019-06-30] MEDS: K, MAG and/or Phos replacement - Verify level? MC SCH (07:40)
[2019-06-30] MEDS: methylnaltrexone br 12mg/0.6ml inj***SubQ only SQ SCH (07:41)
[2019-06-30] MEDS: lactobacillus rhamnosus 10,000 MMU CELLS/CAPSULE PO SCH ×2 (07:56→19:00)
[2019-06-30] MEDS: fludrocortisone acetate 0.1mg tablet OGT SCH (07:56)
[2019-06-30] MEDS: citalopram 20mg tablet OGT SCH (07:56)
[2019-06-30] MEDS: piperacillin/tazo 3.375gm/50ml 50 ML IV SCH ×2 (07:57→15:47)
--- NOTE | 2019-06-30 12:12 | NUR ---
Reassessment: Patient currently has tube feeding off for hopeful extubation, prior was tolerating tube feedings at goal rate with vital AF at 90 ml/hr and GRV are WNL. Pt with AMS which developed after a fall and admit with pericardial effusion and respiratory failure. LBM 06/28, pt with routine Colace and Relistor. Will continue to follow closely, consider BSS prior to diet advancement. Recommendations: 1) Continuous TF via OG tube using Vital AF with goal rate of 90 mL/hr to provide: 2160 mL total volume/day, 2592 kcal, 162 g protein, and 1752 mL water 2) Additional 140 mL water flush Q4H 3) Prealbumin q / 4) Daily weights 5) Recommend BSS prior to diet advancements, Recommend Diet advancement to heart healthy as medically indicated once extubated, texture per [employer] recs 6) Monitor need for adaptive-jim with PO diet advancement given hx Parkinson's 7) Routine bowel care Addendum: 06/30/19 at [address] Amended: Links added.
--- NOTE | 2019-06-30 14:00 | NUR ---
Dr. Bell came to bedside to assess pt, pt was able to follow commands. Dr. Bell decided pt is appropriate for extubation. RT at bedside, junior administrative assistant notified. Extubation order placed. Suction and Yankauer at bedside. Pt extubated to 4L NC. Cough present, b/l lung sounds clear.
[2019-06-30] MEDS: atorvastatin 20mg tablet OGT SCH (19:00)
[2019-06-30] MEDS: furosemide 40mg/4ml inj IV SCH (20:08)
[2019-07-01] VITALS (25 sets, daily range): BP systolic 84–133; BP diastolic 36–71
[2019-07-01] MEDS: piperacillin/tazo 3.375gm/50ml 50 ML IV SCH ×4 (00:39→23:58)
[2019-07-01 03:21] LABS: BASOPHILS # (AUTO) 0.1 X10'3 (0-0.2); BASOPHILS % (AUTO) 0.9 % (0-1); EOSINOPHILS # (AUTO) 0.2 X10'3 (0-0.9); EOSINOPHILS % (AUTO) 1.8 % (0-6); HEMATOCRIT 23.9 % (42.0-52.0); HEMOGLOBIN 8.1 g/dl (14.0-17.9); LYMPHOCYTES # (AUTO) 0.5 X10'3 (1.1-4.8); LYMPHOCYTES % (AUTO) 5.4 % (21-51); MEAN CORPUSCULAR HEMOGLOBIN 32.7 PG (27.0-31.0); MEAN CORPUSCULAR VOLUME 95.9 FL (78-98); MEAN PLATELET VOLUME 7.7 FL (7.4-10.4); MONOCYTES # (AUTO) 1.1 X10'3 (0-0.9); NEUTROPHILS # (AUTO) 7.2 X10'3 (1.8-7.7); NEUTROPHILS % (AUTO) 79.9 % (42-75); PLATELET COUNT 184 X10'3 (140-440); RED BLOOD COUNT 2.49 X10'6 (4.70-6.10)
[2019-07-01 03:25] LABS: ALANINE AMINOTRANSFERASE 29 U/L (12-78); ALBUMIN 1.8 G/DL (3.4-5.0); ALBUMIN/GLOBULIN RATIO 0.4 (1.1-1.5); ALKALINE PHOSPHATASE 63 IU/L (46-116); ANION GAP 4 (8-16); ASPARTATE AMINO TRANSFERASE 28 U/L (10-37); BILIRUBIN,TOTAL 0.4 MG/DL (0.1-1.0); BLOOD UREA NITROGEN 24 MG/DL (7-18); BUN/CREATININE RATIO 18.9 (5.4-32.0); CALCIUM 7.9 MG/DL (8.5-10.1); CHLORIDE 104 MMOL/L (99-107); CREATININE 1.27 MG/DL (0.60-1.10); GLUCOSE 89 MG/DL (70-104); POTASSIUM 3.6 MMOL/L (3.5-5.1); SODIUM 141 MMOL/L (135-145); TOTAL CARBON DIOXIDE 33.4 MMOL/L (24-32); TOTAL PROTEIN 5.9 G/DL (6.4-8.2); eGFR 55 ML/MIN
--- NOTE | 2019-07-01 06:34 | NUR ---
Problems reprioritized. Patient report given, questions answered & plan of care reviewed with Dominique FONG.
--- NOTE | 2019-07-01 06:35 | NUR ---
Patient in room ICU 2042. I have received report from HETAL Franklin and had the opportunity to ask questions and assume patient care.
[2019-07-01] MEDS: K, MAG and/or Phos replacement - Verify level? MC SCH (07:21)
[2019-07-01] MEDS: docusate sodium 100mg/10ml UD cup OGT SCH ×2 (07:22→20:00)
[2019-07-01] MEDS: azithromycin/NS 500mg/250ml 250 ML IV SCH (07:55)
[2019-07-01] MEDS: pantoprazole 40 MG vial IV SCH (07:58)
[2019-07-01] MEDS: furosemide 40mg/4ml inj IV SCH ×2 (07:59→20:11)
[2019-07-01] MEDS: heparin, porcine 5000 units/ml vial SQ SCH ×2 (08:02→20:11)
[2019-07-01] MEDS: tamsulosin 0.4mg capsule PO SCH (08:03)
[2019-07-01] MEDS: fludrocortisone acetate 0.1mg tablet OGT SCH (08:03)
[2019-07-01] MEDS: lactobacillus rhamnosus 10,000 MMU CELLS/CAPSULE PO SCH ×2 (08:03→20:10)
[2019-07-01] MEDS: citalopram 20mg tablet OGT SCH (08:03)
[2019-07-01] MEDS: levoTHYROXINE 88mcg tablet OGT SCH (08:03)
--- NOTE | 2019-07-01 10:27 | NUR ---
Reassessment: Pt has been extubated and diet was advanced to [facility] soft heart healthy. Pt with average 25% PO intake first meal with max assistance, pending further documentation of PO intake. Pt A/O x 1 per physical assessment. [facility] 06/30. Will continue to follw and obtain food preferences once pt more alert and oriented if poor PO intake persists. Recommendations: 1) Continue mechanical soft heart healthy diet 2) Monitor need for BSS 3) Monitor need for adaptive-jim given hx Parkinson's 4) Encourage PO intake; Monitor need for ONS 5) Routine bowel care 6) Wt per rx Addendum: 07/01/19 at [address] Amended: Links added.
--- NOTE | 2019-07-01 18:35 | NUR ---
Problems reprioritized. Patient report given, questions answered & plan of care reviewed with HETAL Howard.
--- NOTE | 2019-07-01 18:35 | NUR ---
Patient in room ICU 2042. I have received report from Dominique FONG and had the opportunity to ask questions and assume patient care. Patient sitting up in recliner chair eating dinner, on 4L nasal cannula with spo2 at 96%, no complaints of pain, alert and orrientated x4, all monitoring alarms in place, see interventions for further information. Will continue to monitor.
[2019-07-01] MEDS: atorvastatin 20mg tablet OGT SCH (20:14)
[2019-07-02] VITALS (24 sets, daily range): BP systolic 88–147; BP diastolic 38–76
--- NOTE | 2019-07-02 | NUR ---
Patient asleep with home CPAP and nasal cannula in place. Call light in reach.
[2019-07-02 03:35] LABS: ALANINE AMINOTRANSFERASE 33 U/L (12-78); ALBUMIN/GLOBULIN RATIO 0.5 (1.1-1.5); ALKALINE PHOSPHATASE 66 IU/L (46-116); ANION GAP 4 (8-16); ASPARTATE AMINO TRANSFERASE 31 U/L (10-37); BILIRUBIN,TOTAL 0.5 MG/DL (0.1-1.0); BLOOD UREA NITROGEN 28 MG/DL (7-18); BUN/CREATININE RATIO 18.9 (5.4-32.0); CHLORIDE 101 MMOL/L (99-107); CREATININE 1.48 MG/DL (0.60-1.10); GLUCOSE 93 MG/DL (70-104); PHOSPHORUS 3.4 MG/DL (2.3-4.5); POTASSIUM 3.3 MMOL/L (3.5-5.1); SODIUM 141 MMOL/L (135-145); TOTAL PROTEIN 6.2 G/DL (6.4-8.2); eGFR 46 ML/MIN
[2019-07-02 05:44] LABS: BASOPHILS # (AUTO) 0.1 X10'3 (0-0.2); BASOPHILS % (AUTO) 0.7 % (0-1); EOSINOPHILS # (AUTO) 0.1 X10'3 (0-0.9); EOSINOPHILS % (AUTO) 1.9 % (0-6); HEMATOCRIT 24.8 % (42.0-52.0); HEMOGLOBIN 8.4 g/dl (14.0-17.9); LYMPHOCYTES # (AUTO) 0.6 X10'3 (1.1-4.8); LYMPHOCYTES % (AUTO) 7.2 % (21-51); MEAN CORPUSCULAR HEMOGLOBIN 32.3 PG (27.0-31.0); MEAN CORPUSCULAR HGB CONC 33.9 g/dL (33.0-36.5); MEAN CORPUSCULAR VOLUME 95.2 FL (78-98); MEAN PLATELET VOLUME 7.5 FL (7.4-10.4); MONOCYTES % (AUTO) 13.3 % (2-12); NEUTROPHILS # (AUTO) 5.9 X10'3 (1.8-7.7); NEUTROPHILS % (AUTO) 76.9 % (42-75); PLATELET COUNT 208 X10'3 (140-440); RED BLOOD COUNT 2.61 X10'6 (4.70-6.10); RED CELL DISTRIBUTION WIDTH 13.6 % (11.5-14.5); WHITE BLOOD COUNT 7.7 X10'3 (4.5-11.0)
--- NOTE | 2019-07-02 06:30 | NUR ---
Patient in room ICU 2042. I have received report from Anita FONG and had the opportunity to ask questions and assume patient care.
--- NOTE | 2019-07-02 06:32 | NUR ---
Problems reprioritized. Patient report given, questions answered & plan of care reviewed with Jordi FONG and Eva FONG.
[2019-07-02] MEDS: methylnaltrexone br 12mg/0.6ml inj***SubQ only SQ SCH (08:00)
[2019-07-02] MEDS: K, MAG and/or Phos replacement - Verify level? MC SCH (08:00)
[2019-07-02] MEDS: K and/or MAG REPLACEMENT MC SCH (08:00)
[2019-07-02] MEDS: docusate sodium 100mg/10ml UD cup OGT SCH (08:00)
[2019-07-02] MEDS ORDERED: potassium CL 10mEq/100ml bag 100 ML IV PRN (08:30)
[2019-07-02] MEDS ORDERED: magnesium 2GM in 50ml NS 50 ML IV PRN (08:30)
[2019-07-02] MEDS ORDERED: potassium Cl 20 mEq SR tablet PO PRN ×2 (08:30)
[2019-07-02] MEDS ORDERED: magnesium 4gm in 100ml NS 100 ML IV PRN (08:30)
[2019-07-02] MEDS ORDERED: magnesium Cl slow-release 64mg tablet PO PRN (08:30)
--- NOTE | 2019-07-02 08:43 | NUR ---
Gillian called to state due to weather she will not be in today but that patient watches the [employer] and she would like TV set to elliott at 1300. Also states that it is common for patient to not be awake until 10 and sleepy in the morning. Will continue to monitor.
[2019-07-02] MEDS: pantoprazole 40 MG vial IV SCH (08:49)
[2019-07-02] MEDS: furosemide 40mg/4ml inj IV SCH ×2 (08:52→21:32)
[2019-07-02] MEDS: heparin, porcine 5000 units/ml vial SQ SCH ×2 (08:53→21:32)
[2019-07-02] MEDS: tamsulosin 0.4mg capsule PO SCH (08:54)
[2019-07-02] MEDS: fludrocortisone acetate 0.1mg tablet OGT SCH (08:54)
[2019-07-02] MEDS: lactobacillus rhamnosus 10,000 MMU CELLS/CAPSULE PO SCH ×2 (08:54→21:32)
[2019-07-02] MEDS: citalopram 20mg tablet OGT SCH (08:56)
[2019-07-02] MEDS: azithromycin/NS 500mg/250ml 250 ML IV SCH (08:56)
[2019-07-02] MEDS: piperacillin/tazo 3.375gm/50ml 50 ML IV SCH ×2 (08:58→16:28)
[2019-07-02] MEDS: levoTHYROXINE 88mcg tablet OGT SCH (08:58)
[2019-07-02] MEDS: potassium Cl 20mEq/100mL bag 100 ML IV PRN ×2 (10:39→11:59)
--- NOTE | 2019-07-02 11:40 | NUR ---
Patient leaning to left side, physical therapy noted that the patient was having left leg weakness and slight left side facial droop and left deviation of the tongue. Notified Dr. Bell who requested call to to clarify baseline. , Gillian, states that the patient leans to left side in chair at home at times and favors the left side as well. States that the patient has had 2 MRIs one with contrast which show the same thing, Brainstem atrophy. Notified Dr. Bell who states ok. Will continue to monitor.
[2019-07-02] MEDS: midodrine tablet 2.5 MG TABLET PO SCH ×2 (12:47→21:32)
--- NOTE | 2019-07-02 17:58 | NUR ---
Patient's called and stated that the patient is on a high salt diet ordered by Dr. Donahue (neurologist) and she would like to discuss with MD keeping his diet high salt. Will continue to monitor.
--- NOTE | 2019-07-02 18:17 | NUR ---
Problems reprioritized. Patient report given, questions answered & plan of care reviewed with Anita FONG. Patient resting eyes closed respirations even.
--- NOTE | 2019-07-02 18:32 | NUR ---
Patient lethargic, minimal response to stimuli. ABG ordered.
[2019-07-02 18:45] LABS: ABG BASE EXCESS 11.2 mmol/L (-2.0-3.0); ABG HCO3 36.4 mmol/L (22.0-26.0); ABG OXYGEN SATURATION 95.7 % (95-98); ABG PCO2 (T) 51.6 mmHg (35.0-45.0); ABG PH (T) 7.466 (7.350-7.450); ABG PO2 (T) 80.2 mmHg (83-108); ALLEN'S TEST Positive; FCOHb 0.3 % (0.5-1.5); FLOW 3 L/min; FMetHb 0.3 % (0.3-1.12); FO2Hb 95.1 % (94-100); TOTAL HEMOGLOBIN 9.7 G/dl (14.0-17.9)
--- NOTE | 2019-07-02 21:30 | NUR ---
At approximally 2015 patient became less lethargic and was able to follow commands. Patient was on home CPAP after ABG results.
[2019-07-02] MEDS: polyethylene glycol 3350 17gm powd pack PO SCH (21:32)
[2019-07-02] MEDS: atorvastatin 20mg tablet OGT SCH (21:32)
[2019-07-03] VITALS (24 sets, daily range): BP systolic 88–140; BP diastolic 45–80
[2019-07-03] MEDS: piperacillin/tazo 3.375gm/50ml 50 ML IV SCH ×3 (00:26→16:45)
[2019-07-03 02:36] LABS: BASOPHILS # (AUTO) 0.1 X10'3 (0-0.2); BASOPHILS % (AUTO) 1.1 % (0-1); EOSINOPHILS # (AUTO) 0.2 X10'3 (0-0.9); EOSINOPHILS % (AUTO) 2.6 % (0-6); HEMATOCRIT 25.1 % (42.0-52.0); HEMOGLOBIN 8.6 g/dl (14.0-17.9); LYMPHOCYTES # (AUTO) 0.6 X10'3 (1.1-4.8); LYMPHOCYTES % (AUTO) 8.9 % (21-51); MEAN CORPUSCULAR HEMOGLOBIN 32.6 PG (27.0-31.0); MEAN CORPUSCULAR HGB CONC 34.4 g/dL (33.0-36.5); MEAN CORPUSCULAR VOLUME 94.7 FL (78-98); MONOCYTES % (AUTO) 15.4 % (2-12); NEUTROPHILS # (AUTO) 4.5 X10'3 (1.8-7.7); PLATELET COUNT 212 X10'3 (140-440); RED BLOOD COUNT 2.65 X10'6 (4.70-6.10); WHITE BLOOD COUNT 6.3 X10'3 (4.5-11.0)
[2019-07-03 02:49] LABS: ALANINE AMINOTRANSFERASE 31 U/L (12-78); ALBUMIN 2.2 G/DL (3.4-5.0); ALBUMIN/GLOBULIN RATIO 0.5 (1.1-1.5); ALKALINE PHOSPHATASE 71 IU/L (46-116); ANION GAP 1 (8-16); ASPARTATE AMINO TRANSFERASE 32 U/L (10-37); BILIRUBIN,TOTAL 0.4 MG/DL (0.1-1.0); BLOOD UREA NITROGEN 28 MG/DL (7-18); BUN/CREATININE RATIO 18.4 (5.4-32.0); CALCIUM 8.3 MG/DL (8.5-10.1); CHLORIDE 100 MMOL/L (99-107); CREATININE 1.52 MG/DL (0.60-1.10); GLUCOSE 94 MG/DL (70-104); MAGNESIUM 2.1 MG/DL (1.5-2.4); PHOSPHORUS 3.3 MG/DL (2.3-4.5); POTASSIUM 3.4 MMOL/L (3.5-5.1); PREALBUMIN 12.2 MG/DL (19-36); SODIUM 139 MMOL/L (135-145); TOTAL CARBON DIOXIDE 38.3 MMOL/L (24-32); TOTAL PROTEIN 6.6 G/DL (6.4-8.2); eGFR 44 ML/MIN
[2019-07-03] MEDS: POTASSIUM BICARB 20meq eff tab 20 MEQ TABLET.EFF OGT PRN ×3 (04:12→12:12)
[2019-07-03] MEDS: midodrine tablet 2.5 MG TABLET PO SCH ×3 (04:13→20:52)
--- NOTE | 2019-07-03 06:15 | NUR ---
Patient in room ICU 2042. I have received report from HETAL Howard and had the opportunity to ask questions and assume patient care.
--- NOTE | 2019-07-03 06:30 | NUR ---
Problems reprioritized. Patient report given, questions answered & plan of care reviewed with Seema FONG.
[2019-07-03] MEDS: azithromycin/NS 500mg/250ml 250 ML IV SCH (08:08)
[2019-07-03] MEDS: pantoprazole 40 MG vial IV SCH (08:08)
[2019-07-03] MEDS: furosemide 40mg/4ml inj IV SCH ×2 (08:08→20:52)
[2019-07-03] MEDS: lactobacillus rhamnosus 10,000 MMU CELLS/CAPSULE PO SCH ×2 (08:09→20:52)
[2019-07-03] MEDS: levoTHYROXINE 88mcg tablet OGT SCH (08:09)
[2019-07-03] MEDS: tamsulosin 0.4mg capsule PO SCH (08:09)
[2019-07-03] MEDS: heparin, porcine 5000 units/ml vial SQ SCH ×2 (08:09→20:52)
[2019-07-03] MEDS: fludrocortisone acetate 0.1mg tablet OGT SCH (08:09)
[2019-07-03] MEDS: citalopram 20mg tablet OGT SCH (08:10)
[2019-07-03] MEDS: K and/or MAG REPLACEMENT MC SCH (08:12)
[2019-07-03] MEDS: K, MAG and/or Phos replacement - Verify level? MC SCH (08:13)
--- NOTE | 2019-07-03 10:50 | NUR ---
ECHO and xray ordered for comparison studies. Notified ECHO of new order.
--- NOTE | 2019-07-03 14:23 | NUR ---
Attempt made to ambulate patient from chair to bed using FWW, with nursing staff. Patient was not able to ambulate. Utilized sit to stand efficiently with nursing staff.
--- NOTE | 2019-07-03 17:58 | NUR ---
Removed right IJ, pt tolerated well. x3 sutures removed. No bleeding or hematoma present. Pressure applied for 5 minutes. Dressing placed. CDI
--- NOTE | 2019-07-03 18:12 | NUR ---
History of patient was clarified with over telephone. 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 Patient does not have history of lung cancer; he had sarcoidosis in 1974.
--- NOTE | 2019-07-03 18:18 | NUR ---
Problems reprioritized. Patient report given, questions answered & plan of care reviewed with HETAL Cool.
--- NOTE | 2019-07-03 18:20 | NUR ---
Patient in room ICU 2042. I have received report from Seema FONG and had the opportunity to ask questions and assume patient care. Patient alert and oriented x4, in bed with head of bed elevated, on 2LC with spo2 at 95%, no complaints of pain, no signs or symptoms of distress. All monitoring alarms audible.
[2019-07-03] MEDS: polyethylene glycol 3350 17gm powd pack PO SCH (20:51)
[2019-07-03] MEDS: atorvastatin 20mg tablet OGT SCH (20:52)
[2019-07-04] VITALS (19 sets, daily range): BP systolic 82–142; BP diastolic 40–72
--- NOTE | 2019-07-04 | NUR ---
Patient asleep with on CPAP in place.
[2019-07-04] MEDS: piperacillin/tazo 3.375gm/50ml 50 ML IV SCH ×2 (00:02→07:47)
[2019-07-04] MEDS: midodrine tablet 2.5 MG TABLET PO SCH ×3 (04:13→20:31)
[2019-07-04 05:33] LABS: BASOPHILS # (AUTO) 0.1 X10'3 (0-0.2); BASOPHILS % (AUTO) 0.8 % (0-1); EOSINOPHILS # (AUTO) 0.2 X10'3 (0-0.9); EOSINOPHILS % (AUTO) 2.3 % (0-6); HEMATOCRIT 25.9 % (42.0-52.0); LYMPHOCYTES # (AUTO) 0.7 X10'3 (1.1-4.8); LYMPHOCYTES % (AUTO) 9.9 % (21-51); MEAN CORPUSCULAR HEMOGLOBIN 32.4 PG (27.0-31.0); MEAN CORPUSCULAR HGB CONC 34.7 g/dL (33.0-36.5); MEAN CORPUSCULAR VOLUME 93.3 FL (78-98); MEAN PLATELET VOLUME 7.2 FL (7.4-10.4); MONOCYTES # (AUTO) 0.9 X10'3 (0-0.9); MONOCYTES % (AUTO) 12.4 % (2-12); NEUTROPHILS # (AUTO) 5.2 X10'3 (1.8-7.7); NEUTROPHILS % (AUTO) 74.6 % (42-75); PLATELET COUNT 232 X10'3 (140-440); RED BLOOD COUNT 2.78 X10'6 (4.70-6.10); RED CELL DISTRIBUTION WIDTH 13.9 % (11.5-14.5); WHITE BLOOD COUNT 6.9 X10'3 (4.5-11.0)
[2019-07-04 05:55] LABS: ALBUMIN 2.3 G/DL (3.4-5.0); ALBUMIN/GLOBULIN RATIO 0.5 (1.1-1.5); ANION GAP 1 (8-16); ASPARTATE AMINO TRANSFERASE 29 U/L (10-37); BILIRUBIN,TOTAL 0.4 MG/DL (0.1-1.0); BLOOD UREA NITROGEN 30 MG/DL (7-18); BUN/CREATININE RATIO 16.9 (5.4-32.0); CALCIUM 8.4 MG/DL (8.5-10.1); CHLORIDE 100 MMOL/L (99-107); CREATININE 1.77 MG/DL (0.60-1.10); GLUCOSE 95 MG/DL (70-104); MAGNESIUM 2.1 MG/DL (1.5-2.4); PHOSPHORUS 3.1 MG/DL (2.3-4.5); POTASSIUM 3.6 MMOL/L (3.5-5.1); SODIUM 139 MMOL/L (135-145); TOTAL CARBON DIOXIDE 38.3 MMOL/L (24-32); TOTAL PROTEIN 6.7 G/DL (6.4-8.2); eGFR 37 ML/MIN
[2019-07-04 05:56] LABS: ALANINE AMINOTRANSFERASE 31 U/L (12-78); ALKALINE PHOSPHATASE 68 IU/L (46-116)
[2019-07-04] MEDS: K and/or MAG REPLACEMENT MC SCH (06:34)
[2019-07-04] MEDS: K, MAG and/or Phos replacement - Verify level? MC SCH (06:35)
--- NOTE | 2019-07-04 06:37 | NUR ---
Patient in room ICU 2042. I have received report from HETAL Howard and had the opportunity to ask questions and assume patient care.
--- NOTE | 2019-07-04 06:47 | NUR ---
Respirations present, patient resting with eyes closed. No s/s of distress. CPAP in place and functioning. VSS. Shultz catheter gravity draining. Right FA PIV patent and flushable. Will continue to monitor.
[2019-07-04] MEDS: furosemide 40mg/4ml inj IV SCH (07:47)
[2019-07-04] MEDS: pantoprazole 40 MG vial IV SCH (07:47)
[2019-07-04] MEDS: citalopram 20mg tablet OGT SCH (07:48)
[2019-07-04] MEDS: lactobacillus rhamnosus 10,000 MMU CELLS/CAPSULE PO SCH ×2 (07:48→20:31)
[2019-07-04] MEDS: fludrocortisone acetate 0.1mg tablet OGT SCH (07:48)
[2019-07-04] MEDS: levoTHYROXINE 88mcg tablet OGT SCH (07:48)
[2019-07-04] MEDS: heparin, porcine 5000 units/ml vial SQ SCH (07:49)
[2019-07-04] MEDS: tamsulosin 0.4mg capsule PO SCH (07:50)
--- NOTE | 2019-07-04 11:31 | NUR ---
Reassessment: Pt PO 75-100% avg mechanical soft/heart healthy meals meeting needs. Pt receiving adaptive wear for tremors. 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 LBM 07/02. Will continue to monitor. Recommendations: 1) Continue mechanical soft heart healthy diet 2) adaptive-jim given hx tremors 3) Routine bowel care 4) Wt per rx Addendum: 07/04/19 at [address] Amended: Links added.
--- NOTE | 2019-07-04 14:37 | NUR ---
Patient in room ICU 2042. I have received report from HETAL Stephenson and had the opportunity to ask questions and assume patient care.
--- NOTE | 2019-07-04 15:26 | NUR ---
Patient transferred to PCU by nursing staff. No s/s of distress. VSS. All questions and concerns addressed.
--- NOTE | 2019-07-04 18:30 | NUR ---
Problems reprioritized. Patient report given, questions answered & plan of care reviewed with HETAL Keita.
[2019-07-04] MEDS: polyethylene glycol 3350 17gm powd pack PO SCH (20:31)
[2019-07-04] MEDS: atorvastatin 20mg tablet OGT SCH (20:31)
[2019-07-05 02:00] VITALS: BP 115/58
--- NOTE | 2019-07-05 02:33 | NUR ---
patient has urinary frequency, and he accept to use condom catheterization.
[2019-07-05] MEDS: midodrine tablet 2.5 MG TABLET PO SCH ×3 (04:25→22:04)
[2019-07-05 06:00] VITALS: BP 131/65
[2019-07-05 06:15] LABS: BASOPHILS # (AUTO) 0.1 X10'3 (0-0.2); EOSINOPHILS # (AUTO) 0.2 X10'3 (0-0.9); EOSINOPHILS % (AUTO) 3.2 % (0-6); HEMATOCRIT 25.9 % (42.0-52.0); HEMOGLOBIN 8.8 g/dl (14.0-17.9); LYMPHOCYTES % (AUTO) 13.5 % (21-51); MEAN CORPUSCULAR HEMOGLOBIN 32.1 PG (27.0-31.0); MEAN CORPUSCULAR HGB CONC 33.9 g/dL (33.0-36.5); MEAN CORPUSCULAR VOLUME 94.8 FL (78-98); MEAN PLATELET VOLUME 7.1 FL (7.4-10.4); MONOCYTES # (AUTO) 0.9 X10'3 (0-0.9); MONOCYTES % (AUTO) 11.5 % (2-12); NEUTROPHILS # (AUTO) 5.2 X10'3 (1.8-7.7); NEUTROPHILS % (AUTO) 70.8 % (42-75); PLATELET COUNT 265 X10'3 (140-440); RED BLOOD COUNT 2.73 X10'6 (4.70-6.10); RED CELL DISTRIBUTION WIDTH 14.2 % (11.5-14.5); WHITE BLOOD COUNT 7.4 X10'3 (4.5-11.0)
--- NOTE | 2019-07-05 06:29 | NUR ---
Problems reprioritized. Patient report given to David, questions answered & plan of care reviewed with .
--- NOTE | 2019-07-05 06:33 | NUR ---
Patient in room PCU 3017. I have received report from HETAL Keita and had the opportunity to ask questions and assume patient care.
[2019-07-05 06:43] LABS: ALANINE AMINOTRANSFERASE 28 U/L (12-78); ALBUMIN 2.2 G/DL (3.4-5.0); ALBUMIN/GLOBULIN RATIO 0.5 (1.1-1.5); ALKALINE PHOSPHATASE 71 IU/L (46-116); ANION GAP 4 (8-16); ASPARTATE AMINO TRANSFERASE 27 U/L (10-37); BILIRUBIN,TOTAL 0.3 MG/DL (0.1-1.0); BLOOD UREA NITROGEN 33 MG/DL (7-18); BUN/CREATININE RATIO 19.9 (5.4-32.0); CALCIUM 8.3 MG/DL (8.5-10.1); CHLORIDE 100 MMOL/L (99-107); CREATININE 1.66 MG/DL (0.60-1.10); GLUCOSE 96 MG/DL (70-104); MAGNESIUM 2.3 MG/DL (1.5-2.4); PHOSPHORUS 2.9 MG/DL (2.3-4.5); POTASSIUM 3.5 MMOL/L (3.5-5.1); SODIUM 140 MMOL/L (135-145); TOTAL CARBON DIOXIDE 36.3 MMOL/L (24-32); TOTAL PROTEIN 6.8 G/DL (6.4-8.2); eGFR 40 ML/MIN
[2019-07-05] MEDS: K, MAG and/or Phos replacement - Verify level? MC SCH (08:00)
[2019-07-05] MEDS: pantoprazole 40 MG vial IV SCH (08:37)
[2019-07-05] MEDS: aspirin 81mg tab.chew PO SCH (08:37)
[2019-07-05] MEDS: fludrocortisone acetate 0.1mg tablet OGT SCH (08:37)
[2019-07-05] MEDS: citalopram 20mg tablet OGT SCH (08:37)
[2019-07-05] MEDS: tamsulosin 0.4mg capsule PO SCH (08:37)
[2019-07-05] MEDS: lactobacillus rhamnosus 10,000 MMU CELLS/CAPSULE PO SCH ×2 (08:37→22:03)
[2019-07-05] MEDS: levoTHYROXINE 88mcg tablet OGT SCH (08:37)
[2019-07-05] MEDS: furosemide 20 MG/2 ML vial IV SCH (08:38)
[2019-07-05 11:00] VITALS: BP 121/61
[2019-07-05 15:00] VITALS: BP 106/51
--- NOTE | 2019-07-05 18:59 | NUR ---
Problems reprioritized. Patient report given, questions answered & plan of care reviewed with HETAL Moura.
[2019-07-05 19:00] VITALS: BP 120/61
[2019-07-05] MEDS: polyethylene glycol 3350 17gm powd pack PO SCH (22:03)
[2019-07-05] MEDS: atorvastatin 20mg tablet OGT SCH (22:03)
[2019-07-05 23:00] VITALS: BP 133/64
[2019-07-06 03:00] VITALS: BP 114/66
[2019-07-06] MEDS: midodrine tablet 2.5 MG TABLET PO SCH ×3 (04:00→20:00)
--- NOTE | 2019-07-06 04:55 | NUR ---
midodrine held for BP 135/68
[2019-07-06 06:16] LABS: BASOPHILS # (AUTO) 0.1 X10'3 (0-0.2); BASOPHILS % (AUTO) 0.9 % (0-1); EOSINOPHILS # (AUTO) 0.3 X10'3 (0-0.9); HEMATOCRIT 25.8 % (42.0-52.0); LYMPHOCYTES # (AUTO) 1.2 X10'3 (1.1-4.8); LYMPHOCYTES % (AUTO) 12.9 % (21-51); MEAN CORPUSCULAR HEMOGLOBIN 32.7 PG (27.0-31.0); MEAN CORPUSCULAR HGB CONC 34.8 g/dL (33.0-36.5); MEAN CORPUSCULAR VOLUME 93.9 FL (78-98); MEAN PLATELET VOLUME 6.8 FL (7.4-10.4); MONOCYTES # (AUTO) 0.8 X10'3 (0-0.9); MONOCYTES % (AUTO) 8.6 % (2-12); NEUTROPHILS # (AUTO) 6.7 X10'3 (1.8-7.7); NEUTROPHILS % (AUTO) 74.6 % (42-75); PLATELET COUNT 266 X10'3 (140-440); RED BLOOD COUNT 2.75 X10'6 (4.70-6.10); RED CELL DISTRIBUTION WIDTH 13.7 % (11.5-14.5); WHITE BLOOD COUNT 8.9 X10'3 (4.5-11.0)
[2019-07-06 06:21] LABS: % IRON SATURATION 17 % (11-46); IRON 36 UG/DL (53-167); TOTAL IRON BINDING CAPACITY 216 UG/DL (259-388)
[2019-07-06 06:30] VITALS: BP 121/58
--- NOTE | 2019-07-06 06:35 | NUR ---
Patient in room PCU 3017. I have received report from Martell FONG and had the opportunity to ask questions and assume patient care.
[2019-07-06 06:48] LABS: ALANINE AMINOTRANSFERASE 28 U/L (12-78); ALBUMIN 2.3 G/DL (3.4-5.0); ALBUMIN/GLOBULIN RATIO 0.5 (1.1-1.5); ALKALINE PHOSPHATASE 69 IU/L (46-116); ANION GAP 4 (8-16); ASPARTATE AMINO TRANSFERASE 26 U/L (10-37); BILIRUBIN,TOTAL 0.3 MG/DL (0.1-1.0); BLOOD UREA NITROGEN 32 MG/DL (7-18); BUN/CREATININE RATIO 22.2 (5.4-32.0); CALCIUM 8.2 MG/DL (8.5-10.1); CHLORIDE 101 MMOL/L (99-107); CREATININE 1.44 MG/DL (0.60-1.10); GLUCOSE 88 MG/DL (70-104); MAGNESIUM 2.2 MG/DL (1.5-2.4); PHOSPHORUS 2.5 MG/DL (2.3-4.5); POTASSIUM 3.7 MMOL/L (3.5-5.1); PREALBUMIN 15.1 MG/DL (19-36); SODIUM 139 MMOL/L (135-145); TOTAL CARBON DIOXIDE 33.8 MMOL/L (24-32); TOTAL PROTEIN 6.6 G/DL (6.4-8.2); eGFR 47 ML/MIN
[2019-07-06] MEDS: K, MAG and/or Phos replacement - Verify level? MC SCH (08:00)
[2019-07-06] MEDS: fludrocortisone acetate 0.1mg tablet OGT SCH (08:28)
[2019-07-06] MEDS: furosemide 20 MG/2 ML vial IV SCH (08:28)
[2019-07-06] MEDS: citalopram 20mg tablet OGT SCH (08:28)
[2019-07-06] MEDS: lactobacillus rhamnosus 10,000 MMU CELLS/CAPSULE PO SCH ×2 (08:28→20:00)
[2019-07-06] MEDS: levoTHYROXINE 88mcg tablet OGT SCH (08:28)
[2019-07-06] MEDS: tamsulosin 0.4mg capsule PO SCH (08:28)
[2019-07-06] MEDS: aspirin 81mg tab.chew PO SCH (08:28)
[2019-07-06] MEDS: pantoprazole 40 MG vial IV SCH (08:28)
[2019-07-06 11:00] VITALS: BP 109/57
--- NOTE | 2019-07-06 12:47 | NUR ---
Per pharmacy advised to hold midodrine unless bp is under 90. Will follow this protocol.
--- NOTE | 2019-07-06 13:22 | NUR ---
Tele neuro set up, waiting on neurologist to asses. Will call to participate in assessment.
[2019-07-06 15:00] VITALS: BP 97/49
[2019-07-06 18:00] VITALS: BP 108/48
--- NOTE | 2019-07-06 18:06 | NUR ---
Problems reprioritized. Patient report given, questions answered & plan of care reviewed with Martell FONG.
[2019-07-06] MEDS: polyethylene glycol 3350 17gm powd pack PO SCH (21:00)
[2019-07-06] MEDS: atorvastatin 20mg tablet OGT SCH (21:00)
[2019-07-06 23:00] VITALS: BP 118/65
[2019-07-07 03:00] VITALS: BP 138/69
[2019-07-07] MEDS: midodrine tablet 2.5 MG TABLET PO SCH ×2 (04:00→12:00)
--- NOTE | 2019-07-07 04:28 | NUR ---
Per Dr. Molina, hold Midodrine 5mg one time for BP of 141/72
[2019-07-07 05:08] LABS: BASOPHILS # (AUTO) 0.1 X10'3 (0-0.2); BASOPHILS % (AUTO) 0.9 % (0-1); EOSINOPHILS # (AUTO) 0.3 X10'3 (0-0.9); EOSINOPHILS % (AUTO) 3.3 % (0-6); HEMATOCRIT 27.5 % (42.0-52.0); HEMOGLOBIN 9.5 g/dl (14.0-17.9); LYMPHOCYTES # (AUTO) 1.2 X10'3 (1.1-4.8); LYMPHOCYTES % (AUTO) 13.4 % (21-51); MEAN CORPUSCULAR HEMOGLOBIN 32.1 PG (27.0-31.0); MEAN CORPUSCULAR HGB CONC 34.4 g/dL (33.0-36.5); MEAN CORPUSCULAR VOLUME 93.2 FL (78-98); MEAN PLATELET VOLUME 6.9 FL (7.4-10.4); MONOCYTES # (AUTO) 0.8 X10'3 (0-0.9); MONOCYTES % (AUTO) 8.7 % (2-12); NEUTROPHILS # (AUTO) 6.5 X10'3 (1.8-7.7); NEUTROPHILS % (AUTO) 73.7 % (42-75); PLATELET COUNT 291 X10'3 (140-440); RED BLOOD COUNT 2.95 X10'6 (4.70-6.10); RED CELL DISTRIBUTION WIDTH 13.9 % (11.5-14.5); WHITE BLOOD COUNT 8.8 X10'3 (4.5-11.0)
[2019-07-07 05:27] LABS: ALANINE AMINOTRANSFERASE 31 U/L (12-78); ALBUMIN 2.5 G/DL (3.4-5.0); ALBUMIN/GLOBULIN RATIO 0.6 (1.1-1.5); ALKALINE PHOSPHATASE 75 IU/L (46-116); ANION GAP 1 (8-16); ASPARTATE AMINO TRANSFERASE 28 U/L (10-37); BILIRUBIN,TOTAL 0.3 MG/DL (0.1-1.0); BLOOD UREA NITROGEN 33 MG/DL (7-18); BUN/CREATININE RATIO 21.7 (5.4-32.0); CALCIUM 8.7 MG/DL (8.5-10.1); CHLORIDE 102 MMOL/L (99-107); CREATININE 1.52 MG/DL (0.60-1.10); GLUCOSE 87 MG/DL (70-104); MAGNESIUM 2.3 MG/DL (1.5-2.4); PHOSPHORUS 2.9 MG/DL (2.3-4.5); POTASSIUM 4.3 MMOL/L (3.5-5.1); SODIUM 138 MMOL/L (135-145); TOTAL PROTEIN 6.9 G/DL (6.4-8.2); eGFR 44 ML/MIN
[2019-07-07 06:30] VITALS: BP 122/52
--- NOTE | 2019-07-07 06:35 | NUR ---
Patient in room PCU 3017. I have received report from Martell FONG and had the opportunity to ask questions and assume patient care.
--- NOTE | 2019-07-07 06:58 | NUR ---
Problems reprioritized. Patient report given, questions answered & plan of care reviewed with Kary FONG
[2019-07-07] MEDS: tamsulosin 0.4mg capsule PO SCH (07:57)
[2019-07-07] MEDS: fludrocortisone acetate 0.1mg tablet OGT SCH (07:57)
[2019-07-07] MEDS: furosemide 20 MG/2 ML vial IV SCH (07:57)
[2019-07-07] MEDS: pantoprazole 40 MG vial IV SCH (07:57)
[2019-07-07] MEDS: lactobacillus rhamnosus 10,000 MMU CELLS/CAPSULE PO SCH (07:58)
[2019-07-07] MEDS: levoTHYROXINE 88mcg tablet OGT SCH (07:58)
[2019-07-07] MEDS: K, MAG and/or Phos replacement - Verify level? MC SCH (07:58)
[2019-07-07] MEDS: citalopram 20mg tablet OGT SCH (07:58)
[2019-07-07] MEDS: aspirin 81mg tab.chew PO SCH (07:58)
--- NOTE | 2019-07-07 10:50 | NUR ---
Patient received tele neuro consult from Dr. Ulloa at 1018, Dr. Ulloa to call Dr. Wisdom with suggestions.
[2019-07-07 11:00] VITALS: BP 112/62
[2019-07-07] MEDS ORDERED: ASPI-1265 PO (11:12)
[2019-07-07] MEDS ORDERED: MIDO2.5T14 PO (11:12)
[2019-07-07] MEDS ORDERED: LACT10SO32 PO (11:12)
--- NOTE | 2019-07-07 11:46 | NUR ---
Patient discharging to rehab, sujatha cargo to be here at 1300 to transfer.
--- NOTE | 2019-07-07 12:50 | NUR ---
Called report to Rosy Young LVN. Sue cargo to lease picker in 10 minutes.
== END 2019-07-07 13:10 | DRG 207 ==
LOC: ER 16:35 → ED HOLD 17:43 → ICU 2S 20:23 → PCU 3S 07-04 15:37
PROC: 5A1955Z Respiratory Ventilation, Greater than 96 Consecutive Hours (ICD-10-PCS; principal; 2019-06-23)
PROC: BW281ZZ Computerized Tomography (CT Scan) of Head using Low Osmolar Contrast (ICD-10-PCS; 2019-06-23)
PROC: 0BH17EZ Insertion of Endotracheal Airway into Trachea, Via Natural or Artificial Opening (ICD-10-PCS; 2019-06-23)
PROC: 02HV33Z Insertion of Infusion Device into Superior Vena Cava, Percutaneous Approach (ICD-10-PCS; 2019-06-23)
PROC: BW281ZZ Computerized Tomography (CT Scan) of Head using Low Osmolar Contrast (ICD-10-PCS; 2019-06-24)
PROC: 4A00X4Z Measurement of Central Nervous Electrical Activity, External Approach (ICD-10-PCS; 2019-06-25)
PROC: 5A09357 Assistance with Respiratory Ventilation, Less than 24 Consecutive Hours, Continuous Positive Airway Pressure (ICD-10-PCS; 2019-06-30)
PROC: 5A09357 Assistance with Respiratory Ventilation, Less than 24 Consecutive Hours, Continuous Positive Airway Pressure (ICD-10-PCS; 2019-07-02)
PROC: 5A09357 Assistance with Respiratory Ventilation, Less than 24 Consecutive Hours, Continuous Positive Airway Pressure (ICD-10-PCS; 2019-07-03)
PROC: 5A09357 Assistance with Respiratory Ventilation, Less than 24 Consecutive Hours, Continuous Positive Airway Pressure (ICD-10-PCS; 2019-07-06)
DX: J96.00 Acute respiratory failure, unspecified whether with hypoxia or hypercapnia (principal); J90 Pleural effusion, not elsewhere classified; I31.3 Pericardial effusion (noninflammatory); J98.11 Atelectasis; I48.92 Unspecified atrial flutter; N17.9 Acute kidney failure, unspecified; I65.29 Occlusion and stenosis of unspecified carotid artery; D63.8 Anemia in other chronic diseases classified elsewhere; D86.9 Sarcoidosis, unspecified; E03.9 Hypothyroidism, unspecified; E78.5 Hyperlipidemia, unspecified; F32.9 Major depressive disorder, single episode, unspecified; G20 Parkinson's disease; I48.0 Paroxysmal atrial fibrillation; I95.1 Orthostatic hypotension; D64.9 Anemia, unspecified; G31.9 Degenerative disease of nervous system, unspecified; N18.9 Chronic kidney disease, unspecified; N40.0 Benign prostatic hyperplasia without lower urinary tract symptoms; Z85.118 Personal history of other malignant neoplasm of bronchus and lung; Z91.81 History of falling; Z79.899 Other long term (current) drug therapy
CPT/HCPCS: 36415; 36556; 36600; 70496; 70498; 70544; 70551; 71045; 76937; 80053; 81001; 82803; 82948; 83540; 83550; 83605; 83735; 83880; 84100; 84134; 84145; 84443; 84484; 85018; 85025; 85610; 85730; 87040; 87070; 87081; 93005; 93306; 93308; 94002; 94003; 94640; 94660; 94760; 95816; 97110; 97112; 97116; 97161; 97530; 99291; C9113; G0378; J0456; J1644; J1940; J2212; J2250; J2543; J2704; J3010; J3480; Q9967